=== PATIENT | male | born 1955 | race Caucasian/White ===

== ENCOUNTER 2017-10-06 09:59 | Emergency (ER) | END 2017-10-06 10:51 | disposition home or self-care (01) ==

== ENCOUNTER 2018-09-13 10:40 | Emergency (ER) | payer OTHER ==
[~2018-09-13] VITALS: Wt 75.0 kg
[~2018-09-13 10:40] MED LIST: LISI-313 PO
[2018-09-13 10:41] VITALS: BP 169/96; PULSE 97; RESP 16
[2018-09-13] MEDS ORDERED: FAMO-96 PO (11:44)
--- NOTE | 2018-09-13 11:55 | ERD ---
ER Documentation Chief Complaint Chief Complaint DRY COUGH X2 WEEKS, NO SOB HPI 63-year-old male with no significant past medical history presents with 2 weeks of dry cough. Cough is nonproductive, worse at night. Patient was prescribed lisinopril but denies taking it more than once. Has been taking Robitussin for the cough but has not fully resolved. Denies recent illness. Denies any wheezing or history of asthma. Denies shortness of breath. Patient denies hemoptysis. Patient denies fevers, chills, night sweats. Denies past medical history. Denies allergies. Denies surgeries. Denies medications. Denies alcohol, tobacco, drug use. ROS All systems reviewed and are negative except as per history of present illness. Medications Home Meds Active Scripts Famotidine* (Pepcid*) 20 Mg Tablet, 20 MG PO BID for GERD for 14 Days, #28 TAB 0 Refills Prov:INESCARMEN 09/13/18 Lisinopril* (Lisinopril*) 5 Mg Tablet, 5 MG PO DAILY, #30 TAB Prov:FERNY DUDLEY PA-C 10/06/17 Fmx Family History: No diabetes, No coronary disease, No other Physical Exam Vitals Vital Signs Date Temp Pulse Resp B/P (MAP) Pulse Ox O2 O2 Flow FiO2 Time Delivery Rate 09/13/18 98.3 97 16 169/96 99 10:41 (120) Physical Exam Gen: No acute distress. ENT: Normal External Ears, Nose and Mouth. Resp: Clear to auscultation bilaterally. No rhonchi, wheezes, crackles noted. Symmetric chest rise and fall. Equal breath sounds bilaterally. No tracheal deviation or JVD. Cardio: Regular rate and rhythm, no murmurs Ext: No cyanosis, or edema Neur: Awake and alert Psych: Normal Mood and Affect Procedures/MDM 63-year-old male with no significant past medical history presents with 2 weeks of dry cough. Cough is nonproductive, worse at night. Patient was prescribed lisinopril but denies taking it more than once. Has been taking Robitussin for the cough but has not fully resolved. I have low suspicion for asthma, heart failure, malignancy, pneumonia, pulmonary embolism, foreign body aspiration, pneumothorax, or other emergent etiologies based on patient history and exam. Patient's admitted to history GERD and his cough being worse at night, therefore the cough may likely be a result of GERD. Patient given a trial of Pepcid and advised and educated regarding ways to decrease incidence of GERD. Patient discharged with strict ER precautions. Patient advised to follow up with PMD. All questions answered at discharge. Departure Diagnosis: Primary Impression: Cough Additional Impression: GERD (gastroesophageal reflux disease) Esophagitis presence: esophagitis presence not specified Qualified Codes: K21.9 - Gastro-esophageal reflux disease without esophagitis Condition: Stable Patient Instructions: Cough, Chronic, Uncertain Cause, (Adult), Gerd (Adult) Referrals: [facility] YOU HAVE RECEIVED A MEDICAL SCREENING EXAM AND THE RESULTS INDICATE THAT YOU DO NOT HAVE A CONDITION THAT REQUIRES URGENT TREATMENT IN THE EMERGENCY DEPARTMENT. FURTHER EVALUATION AND TREATMENT OF YOUR CONDITION CAN WAIT UNTIL YOU ARE SEEN IN YOUR DOCTORS OFFICE WITHIN THE NEXT 1-2 DAYS. IT IS YOUR RESPONSIBILITY TO MAKE AN APPOINTMENT FOR FOLOW-UP CARE. IF YOU HAVE A PRIMARY DOCTOR --you should call your primary doctor and schedule an appointment IF YOU DO NOT HAVE A PRIMARY DOCTOR YOU CAN CALL OUR PHYSICIAN REFERRAL HOTLINE AT IF YOU CAN NOT AFFORD TO SEE A PHYSICIAN YOU CAN CHOSE FROM THE FOLLOWING [facility] [address] [facility]. [place] [address] [facility]. [facility] [address] [facility] [facility] [address] [facility]. [facility] [address] [facility]. [facility]. [address] Additional Instructions: FOLLOW UP WITH YOUR PRIMARY CARE PHYSICIAN TOMORROW.Return to this facility if you are not improving as expected. CARMEN CAHCON Sep 13, 2018 11:55
== END 2018-09-13 12:07 | disposition home or self-care (01) ==
LOC: FTE 10:40
DX: K21.9 Gastro-esophageal reflux disease without esophagitis (principal)